=== PATIENT | female | born 1985 | race Caucasian/White ===

== ENCOUNTER 2016-08-05 19:37 | Emergency (ER) | payer BC, OTHER ==
[~2016-08-05] VITALS: Ht 167.6 cm; Wt 57.4 kg
[~2016-08-05 19:37] MED LIST: BCPILLS PO
[2016-08-05 19:44] VITALS: Ht 167.6 cm; Wt 57.4 kg
--- NOTE | 2016-08-05 20:34 | EMERGENCY ROOM VISIT NOTE ---
History Report prepared by Eva: Gregorio Garcia Under the Supervision of: Dr. Juwan Mir M.D. First contact with patient: 20:09 Chief Complaint: RIB PAIN Stated Complaint: PAIN/BRUISING IN RIBS History of Present Illness The patient is a 31 year old female who presents to the Emergency Room with complaints of constant right rib pain beginning ten hours prior to arrival. She currently rates her discomfort as a 4/10 in severity. The patient associates bruising to her right ribs and right arm bruising with today's symptoms. She states the discomfort worsens with sneezing and coughing. The patient notes she was wearing a coat, long sleeve, and undergarments, when she was kicked by the baby horse. She states she got the end of the kick. Pt denies LOC, headache, fevers, chills, diaphoresis, visual changes, neck pain, chest pain, breathing difficulties, nausea, vomiting, abdominal pain, back pain, melena, hematochezia , urinary symptoms, numbness, weakness, lymphadenopathy, rash, or other complaints. 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 A total of ten systems were reviewed and were otherwise negative. Past Medical & Surgical Medical Problems: (1) Asthma (2) Bronchitis (3) Pneumonia Family History Cancer Diabetes mellitus Gallbladder disease Heart disease Hypertension Social History Smoking Status: Never Smoker Marital Status: single Occupation Status: employed Current/Historical Medications Scheduled Control Pills ( Control Pills), 1 TAB PO DAILY Allergies Coded Allergies: No Known Allergies (Unverified Allergy, NONE, 06/25/09) Physical Exam Vital Signs Date Time Temp Pulse Resp B/P Pulse Ox O2 Delivery O2 Flow Rate FiO2 08/05/16 21:29 36.9 71 18 125/75 98 08/05/16 19:44 36.9 68 16 127/76 100 Room Air Physical Exam GENERAL: Awake, alert, well-appearing, in no distress HENT: Normocephalic, atraumatic. Oropharynx unremarkable. EYES: Normal conjunctiva. Sclera non-icteric. NECK: Supple. No nuchal rigidity. FROM. No JVD. RESPIRATORY: Clear to auscultation. CARDIAC: Regular rate, normal rhythm. Extremities warm and well perfused. Pulses equal. ABDOMEN: Soft, non-distended. No tenderness to palpation. No rebound or guarding. No masses. RECTAL: Deferred. MUSCULOSKELETAL: Chest examination reveals tenderness over the right lower anterior ribs. The back is symmetrical on inspection without obvious abnormality. There is no CVA tenderness to palpation. No joint edema. LOWER EXTREMITIES: Calves are equal size bilaterally and non-tender. No edema. No discoloration. NEURO: Normal sensorium. No sensory or motor deficits noted. SKIN: No rash or jaundice noted. Medical Decision & Procedures ER Provider Diagnostic Interpretation: X-ray: Per my interpretation, radiologist review. PA CHEST WITH RIGHT-SIDED RIB SERIES CLINICAL HISTORY: Right chest wall pain. The patient was kicked by a horse. FINDINGS: A PA chest radiograph with 4 additional views from a right-sided rib series is compared obtained. No prior studies are available for comparison at the time of dictation. The cardiomediastinal silhouette is unremarkable. The lungs and pleural spaces are clear. No pneumothorax is seen. The there is no radiographic evidence of acute/distracted right-sided rib fracture on the rib series. The remainder of the bony thorax appears intact. IMPRESSION: 1. The lungs are clear. 2. There is no radiographic evidence of acute/distracted right-sided rib fracture on the rib series as clinically queried. Electronically signed by: Fermin Urbina M.D. 08/05/2016 8:49 PM ED Course 2021: The patient was evaluated in room A11A. A complete history and physical exam was performed. 2104: I reevaluated the patient, and she is doing well. She would like not anything for pain and requested a work note. Discussed results and discharge instructions: She verbalized understanding and agreement. The patient is ready for discharge. Medical Decision Triage Nursing notes reviewed. The patient's presentation and history were concerning for trauma to the ribs. Etiologies such as fracture, dislocation, soft tissue injury, intra-abdominal, intrathoracic, intracranial as well as other traumatic pathologies were entertained. The patient was evaluated. She was tender in the right ribs. She had no abdominal tenderness. Her physical examination was benign otherwise. She had a good pulmonary examination. She declined analgesia. The patient underwent x- ray imaging which did not reveal any significant fracture, hemothorax, or free air. On reassessment she was doing well. It appears that she probably has rib contusions. She could have a subtle nondisplaced fracture although she is doing pretty well. She notes more pain with movement or coughing. She again denies any intra-abdominal pain. I discussed conservative management with the patient. She was in agreement. She was given a work note. If she has any promise she will come back to the Emergency Room for reevaluation. I gave my usual and customary discussion regarding this issue. The chart was completed utilizing [employer] Speech voice recognition software. Grammatical errors, random word insertions, pronoun errors, and incomplete sentences are an occasional consequence of this system due to software limitations, ambient noise, and hardware issues. Any formal questions or concerns about the content, text, or information contained within the body of this dictation should be directly addressed to the physician for clarification. Impression Primary Impression: Contusion of rib on right side Scribe Attestation The scribe's documentation has been prepared under my direction and personally reviewed by me in its entirety. I confirm that the note above accurately reflects all work, treatment, procedures, and medical decision making performed by me. Departure Information Dispostion Home / Self-Care Referrals No Doctor, Assigned (PCP) Forms HOME CARE DOCUMENTATION FORM, IMPORTANT VISIT INFORMATION, WORK / SCHOOL INSTRUCTIONS Patient Instructions A Signature Page, My [facility] Additional Instructions Tylenol: Take 1000 mg every 6 hours as needed for pain. Do not take more than 3000 mg in a 24 hour period. And/or Ibuprofen(Motrin, Advil) may be used for fever or pain. Use 600mg every six hours as needed. Take with food. Avoid using more than 2400mg in a 24 hour period. Do not use 2400mg per day for more than three consecutive days without physician direction. Prolonged inappropriate use can lead to stomach upset or ulcers. Every two to 3 hours take slow deep breaths to exercise your lungs. Do this for about 10 minutes each time. Bruised or cracked ribs can lead to pneumonia and exercising your lungs may help prevent this. No heavy lifting for the next 3 days. Follow-up with your primary care physician in 2 to 3 days for a recheck of your current condition.
--- NOTE | 2016-08-05 20:51 | DIAGNOSTIC IMAGING REPORT ---
PA CHEST WITH RIGHT-SIDED RIB SERIES CLINICAL HISTORY: Right chest wall pain. The patient was kicked by a horse. FINDINGS: A PA chest radiograph with 4 additional views from a right-sided rib series is compared obtained. No prior studies are available for comparison at the time of dictation. The cardiomediastinal silhouette is unremarkable. The lungs and pleural spaces are clear. No pneumothorax is seen. The there is no radiographic evidence of acute/distracted right-sided rib fracture on the rib series. The remainder of the bony thorax appears intact. IMPRESSION: 1. The lungs are clear. 2. There is no radiographic evidence of acute/distracted right-sided rib fracture on the rib series as clinically queried. Electronically signed by: Fermin Urbina M.D. 08/05/2016 8:49 PM
[2016-08-05 21:29] VITALS: BP 125/75; PULSE 71; TEMP 36.9; O2SAT 98
== END 2016-08-05 21:31 | disposition home or self-care (01) ==
LOC: C.EDB 19:37 → C.EDA 21:31
DX: S20.211A Contusion of right front wall of thorax, initial encounter (principal); S40.021A Contusion of right upper arm, initial encounter; W55.82XA Struck by other mammals, initial encounter; J45.909 Unspecified asthma, uncomplicated; Z87.01 Personal history of pneumonia (recurrent); Z80.9 Family history of malignant neoplasm, unspecified; Z83.3 Family history of diabetes mellitus; Z82.49 Family history of ischemic heart disease and other diseases of the circulatory system; Z79.3 Long term (current) use of hormonal contraceptives

== ENCOUNTER → 2017-07-24 | Outpatient (CLI) | payer OTHER | END | disposition home or self-care (01) | LOC: C.PAPS 15:06 | PROVIDERS: ATTEND Obstetrics & Gynecology | DX: Z01.419 Encounter for gynecological examination (general) (routine) without abnormal findings (principal) ==